=== PATIENT | male | born 1980 | race Caucasian/White ===

== ENCOUNTER 2018-03-19 21:03 | Inpatient (IN) ==
[2018-03-19] MEDS ORDERED: Haloperidol Inj 5 MG/ML Ampul IM ONE (21:20)
[2018-03-19] MEDS ORDERED: Tetanus/Diphtheria Toxoid Adult Vaccine Inj 0.5 ML Vial IM ONE (21:29)
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
[2018-03-19 22:39] LABS: Baso # (Auto) 0.1 th/mm3 (0.0-0.2); Baso % (Auto) 0.6 % (0.0-2.0); Eos # (Auto) 0.1 th/mm3 (0.0-0.4); Eos % (Auto) 1.2 % (0.0-4.0); Hematocrit 41.7 % (39.0-51.0); Hemoglobin 14.6 gm/dL (13.0-17.0); Lymph % (Auto) 18.7 % (9.0-44.0); Mean Corpuscular HGB Conc 35.1 % (32.0-36.0); Mean Corpuscular Hemoglobin 31.5 pg (27.0-34.0); Mean Corpuscular Volume 89.7 fL (80.0-100.0); Mean Platelet Volume 9.3 fL (7.0-11.0); Mono # (Auto) 0.9 th/mm3 (0.0-0.9); Mono % (Auto) 8.1 % (0.0-8.0); Neut # (Auto) 7.7 th/mm3 (1.8-7.7); Neut % (Auto) 71.4 % (16.0-70.0); Platelet Count 210 th/mm3 (150-450); Red Blood Count 4.65 mil/mm3 (4.50-5.90); Red Cell Distribution Width 12.5 % (11.6-17.2); White Blood Count 10.8 th/mm3 (4.0-11.0)
[2018-03-19 22:44] LABS: Alanine Aminotransferase 35 U/L (12-78); Anion Gap 9 meq/L (5-15); Aspartate Aminotransferase 32 U/L (15-37); Blood Urea Nitrogen 11 mg/dL (7-18); Calcium 8.4 mg/dL (8.5-10.1); Carbon Dioxide 23.6 meq/L (21.0-32.0); Chloride 111 meq/L (98-107); Glomerular Filtration Rate Greater Than 89 mL/min (>89); Glucose,Random 84 mg/dL (74-106); Potassium 3.2 meq/L (3.5-5.1); Sodium 144 meq/L (136-145)
[2018-03-19 22:54] LABS: Alkaline Phosphatase 61 U/L (45-117); Total Protein 7.1 g/dL (6.4-8.2)
[2018-03-19 23:00] LABS: Alcohol 160 mg/dL (0-5)
[2018-03-20] MEDS ORDERED: Ibuprofen 600 MG Tablet PO ONE ×2 (06:02→16:30)
[2018-03-20 07:40] LABS: Amphetamine Screen,Urine Neg (Neg); Barbiturate Screen,Urine Neg (Neg); Cannabinoid Screen,Urine Pos (Neg); Cocaine Screen,Urine Neg (Neg)
[2018-03-20 07:41] LABS: Opiate Screen,Urine Neg (Neg)
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
[2018-03-20] MEDS ORDERED: Bisacodyl 10 MG Supp RECTAL PRN (14:41)
[2018-03-20] MEDS ORDERED: Haloperidol Inj 5 MG/ML Ampul IV.PUSH PRN (14:41)
[2018-03-20] MEDS ORDERED: LORazepam 1 MG Tablet PO PRN (14:41)
[2018-03-20] MEDS ORDERED: Aluminum/Magnesium/Simethacone Susp 30 ML UDC PO PRN (14:41)
--- NOTE | 2018-03-20 14:52 | P.HPPSY ---
Provisional Diagnosis Admission Date: March 19, 2018 21:03 [place] I.: Alcohol induced mood disorder [place] II.: Antisocial traits Competence Certification of Person's Competence To Provide Express and Informed Consent I have personally examined Garth Rodarte, a person being served at [facility] on, March 20, 2018 1444. Express and informed consent means consent voluntarily given in writing, by a competent person, after sufficient explanation and disclosure of the subject matter involved to enable the person to make a knowing and willful decision without any element of force, fraud, deceit, duress, or other form of constraint or coercion. This person is 18 years of age or older, is not now known to be incompetent to consent to treatment with a guardian advocate, and does not have a health care surrogate or proxy currently making medical treatment decisions. I have found this person to be one of the following: [] Competent to provide express and informed consent, as defined above, for voluntary admission to this facility and is competent to provide express and informed consent for treatment. He/she has the consistent capacity to make well reasoned, willful, and knowing decisions concerning his or her medical or mental health treatment. The person fully and consistently understands the purpose of the admission for examination/placement and is fully capable of personally exercising all rights assured under [place] [] Incompetent to provide express and informed consent to voluntary admission, and this is incompetent to provide express and informed consent to treatment. The person must be transferred to involuntary status and a petition for a guardian advocate filed with the Circuit Court. [x] Refusing to provide express and informed consent to voluntary admission but is competent to provide express and informed consent for treatment. The person must be discharged or transferred to involuntary status. Form shall be completed within 24 hours of a person's arrival at the receiving facility and filed in the clinical record of each person: 1. Admitted on a voluntary basis 2. Permitted to provide express and informed consent to his/her own treatment 3. Allowed to transfer from involuntary to voluntary status 4. Prior to permitting a person to consent to his or her own treatment after having been previously found incompetent to consent to treatment. History of Present Illness Capacity: Has capacity History of Present Illness: The patient is a 37-year-old man, , unemployed at the moment, with a psychiatric history of alcohol and cannabis use disorder, no prepsychotic hospitalizations, no previous suicide attempts, no significant medical history, who presents to this facility under Johnson act for reportedly threatening to kill himself and his family with a loaded handgun. When police arrived he had a physical altercation with them. He currently has a contusion to his left eye with some swelling and a scrape/superficial laceration to his forehead. Patient is known to this facility and was seen in 2015 for a somewhat similar incident of drinking alcohol and making threats to take his life with a loaded gun. He states that he owns 1 firearm. I As per ETIOLOGY TEACHER Cesia Contreras: Reviewed electronic medical record, labs, discuss case with staff. Patient's toxicology screen is positive for cannabinoids and his serum alcohol level is 0.160. He was evaluated in her room J110 by Dr. Higgins and myself. Patient was found sleeping soundly and woke to verbal stimuli. His mood is irritable and he requests that we come back later to speak with him. Explained that we need to speak with him now and he eventually became slightly more cooperative. He does deny being suicidal or homicidal at this time and states that his actions were result to keep his family "on the other side of the door". When asked to elaborate he stated that he just wanted to be by himself. He reports that he "got on my son's asked for disrespect and the next thing I know I am being yelled at". He reports that he lives in [place] with his , 2 children, and one other person. 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 States that he completed college. Denies any medical problems. Denies any family mental health issues. Denies any mental diagnosis or inpatient admissions previously. Does report 1 previous suicide attempt by carbon monoxide asphyxiation. He states that he changed his mind during the attempt and rescued himself.The patient was initially irritated and rather condescending towards staff. He seems fairly entitled to complaining about the comfort of the bed, the lack of an additional pillow, and the blanket provided him. He seems to have some antisocial personality traits present. Patient is currently complaining of arm and shoulder pain as well as some rib pain. Staff have been advised to have medical clear him for the additional reported injuries and then to place him on the [facility] list for further evaluation and treatment. The patient does not have any previous psychiatric history, no suicide attempts , no previous psychiatric hospitalizations Patient reports that daily use of alcohol and cannabis He denies previous psychiatric family history No significant medical history The patient was born and raised in [place], he lives in [place] with his , has 2 kids, unemployed, his highest level of education is high school [employer] - History History Provided By: Patient, Law Enforcement - Tobacco History Smoking Status: Refused to answer - Alcohol History How Often Do You Have a Drink Containing Alcohol: Unable to Obtain - Substance Use History Substance History: Active Abuse - Substance Use Type Marijuana Status: Active Alcohol Status: Active - Immunization History Tetanus Immunization: Never Vaccinated Hx Influenza Vaccine This Season: No Medications and Allergies Active Medications: Active Medications Al Hydrox/Mg Hydrox/Simethicone (Mag-Al Plus Susp Liq) 30 ml PO Q6H PRN PRN Reason: DYSPEPSIA Al Hydroxide/Mg Hydroxide (Milk Of Magnesia Liq) 30 ml PO Q12H PRN PRN Reason: Mild Constipation Bisacodyl (Dulcolax Supp) 10 mg RECTAL DAILY PRN PRN Reason: SEVERE CONSITIPATION Flumazenil (Romazecon Inj) 0.2 mg IV.PUSH Q1M PRN PRN Reason: OVERSEDATION Haloperidol Lactate (Haldol Inj) 1 mg IV.PUSH Q15M PRN PRN Reason: for severe agitation Lactulose (Lactulose Liq) 30 ml PO DAILY PRN PRN Reason: SEVERE CONSITIPATION Lorazepam (Ativan) 1 mg PO Q4H PRN PRN Reason: for CIWA 8-10 Lorazepam (Ativan Inj) 2 mg IV.PUSH Q2H PRN PRN Reason: for CIWA 11-14 Lorazepam (Ativan Inj) 2 mg IV.PUSH Q1H PRN PRN Reason: for CIWA 15-20 Lorazepam (Ativan Inj) 2 mg IV.PUSH Q15M PRN PRN Reason: for CIWA > 20 Lorazepam (Ativan Inj) 1 mg IV.PUSH Q4H PRN PRN Reason: for CIWA 8-10 Lorazepam (Ativan) 2 mg PO Q2H PRN PRN Reason: for CIWA 11-14 Senna/Docusate Sodium (Carmita-Colace) 1 tab PO BID MAYRA Sennosides (Senokot) 17.2 mg PO Q12H PRN PRN Reason: Moderate Constipation Allergies Allergy/AdvReac Type Severity Reaction Status Date / Time No Known Allergies Allergy Uncoded 06/20/14 05:39 Home Medications Medication Instructions Recorded Confirmed Type No Known Home Medications 03/19/18 03/19/18 History Results - Labs CBC & Chem 7: 03/19/18 22:21 03/19/18 22:21 Labs: Laboratory Results - last 24 hr 03/19/18 03/19/18 03/20/18 22:21 22:21 06:14 WBC 10.8 RBC 4.65 Hgb 14.6 Hct 41.7 MCV 89.7 MCH 31.5 MCHC 35.1 RDW 12.5 Plt Count 210 MPV 9.3 Neut % (Auto) 71.4 H Lymph % (Auto) 18.7 Upson % (Auto) 8.1 H Eos % (Auto) 1.2 Baso % (Auto) 0.6 Neut # (Auto) 7.7 Lymph # (Auto) 2.0 Upson # (Auto) 0.9 Eos # (Auto) 0.1 Baso # (Auto) 0.1 WBC Differential . Differential Comment Auto diff final Sodium 144 Potassium 3.2 L Chloride 111 H Carbon Dioxide 23.6 Anion Gap 9 BUN 11 Creatinine 0.80 Estimated GFR Greater than 89 Random Glucose 84 Calcium 8.4 L Total Bilirubin 0.4 AST 32 ALT 35 Alkaline Phosphatase 61 Total Protein 7.1 Albumin 4.0 TSH 1.020 Urine Opiates Screen Neg Ur Barbiturates Screen Neg Ur Amphetamines Screen Neg U Benzodiazepines Scrn Neg Urine Cocaine Screen Neg U Cannabinoids Screen Pos H Serum Alcohol 160 H - Imaging Impressions Face CT 03/19/18 21:21 CONCLUSION: 1. Soft tissue swelling over the left orbit and facial bones. 2. No acute fracture or malalignment. Head CT 03/19/18 21:21 CONCLUSION: 1. No acute hemorrhage or mass effect. 2. Soft tissue swelling over the left orbit and facial bones. . Elbow X-Ray 03/20/18 09:57 CONCLUSION: No evidence of recent bony injury. Ribs X-Ray 03/20/18 09:57 CONCLUSION: Negative rib series. No evidence of pneumonthorax. Shoulder X-Ray 03/20/18 09:57 CONCLUSION: 1. Mild degenerative changes involving the right acromioclavicular glenohumeral joints. 2. No acute fracture or dislocation. Exam Vital signs: Vital Signs 03/20/18 10:05 03/20/18 10:12 Temperature 98.7 F 98.5 F Pulse Rate 61 61 Respiratory Rate 18 18 Blood Pressure 119/73 123/78 Pulse Oximetry 100 98 Intake & Output 03/19/18 03/20/18 03/20/18 18:59 06:59 18:59 Weight 99.79 kg Narrative: Somewhat tremulous, but no psychomotor agitation or retardation, no catatonia, no stiffness, bilateral checking - Constitutional moderate distress - Routine HEENT Exam Head: Present: normocephalic, Garcia's sign ENT: Present: mucous membranes moist Mental Status Examination Appearance: Disheveled Consciousness: Alert Orientation: x4 Motor Activity: Normal gait Speech: Unremarkable Language: Adequate Fund of Knowledge: Adequate Attention and Concentration: Adequate Memory: Unremarkable Mood: Irritable Affect: Irritable Thought Process & Associations: Intact Thought Content: Appropriate Hallucination Type: None Delusion Type: None Suicidal Ideation: No Suicidal Plan: No Suicidal Intention: No Homicidal Ideation: No Homicidal Plan: No Homicidal Intention: No Insight: Fair Judgment: Impulsive Assessment and Plan - Assessment (1) Adjustment disorder in remission Code(s): F43.20 - Adjustment disorder, unspecified Status: Acute (2) Adjustment disorder Code(s): F43.20 - Adjustment disorder, unspecified Status: Acute (3) Alcohol-induced mood disorder Code(s): F10.94 - Alcohol use, unspecified with alcohol-induced mood disorder Status: Acute (4) Suicidal ideation Code(s): R45.851 - Suicidal ideations Status: Acute - Plan Plan: On my psychiatric evaluation today the patient presents oppositional, resistant , initially refusing to cooperate. The patient reports that he does not even know what is the reason he is here. He admits that he had an argument with his , refused to provide details about this argument. He denies that he has expressed suicidal and homicidal ideation, he denies symptoms of depression. Given his opposition and the relevance and dangerous of Johnson act information, the patient will be admitted in psychiatry for longitudinal observation of mood and behavior and for safety. I have not recommending any psychotropic at the moment, just CIWA protocol to prevent alcohol withdrawal. Collateral information from and family member is crucial to complete psychiatric assessment. Justification for Continued Inpatient Stay: Patient will be admitted in 2700 unit. (2) Adjustment disorder Qualifiers: Adjustment disorder type: with depressed mood Qualified Code(s): F43.21 - Adjustment disorder with depressed mood
[2018-03-20 15:20] VITALS: TEMP 98.8
[2018-03-20] MEDS: Senna/Docusate Sodium 8.6/50 MG Tablet PO SCH (21:31)
[2018-03-21 07:35] LABS: Anion Gap 9 meq/L (5-15); Blood Urea Nitrogen 10 mg/dL (7-18); Calcium 9.1 mg/dL (8.5-10.1); Carbon Dioxide 25.3 meq/L (21.0-32.0); Chloride 109 meq/L (98-107); Glomerular Filtration Rate Greater Than 89 mL/min (>89); Glucose,Random 92 mg/dL (74-106); Potassium 3.6 meq/L (3.5-5.1); Sodium 143 meq/L (136-145)
[2018-03-21 07:36] LABS: Cholesterol 162 mg/dL (120-200); Triglycerides 94 mg/dL (42-150)
[2018-03-21 07:39] LABS: Chol/HDL Ratio 3.34 Ratio; HDL Cholesterol 48.5 mg/dL (40.0-60.0); LDL Cholesterol,Calculated 95 mg/dL (0-99)
[2018-03-21] MEDS: Senna/Docusate Sodium 8.6/50 MG Tablet PO SCH ×2 (09:47→20:49)
[2018-03-21] MEDS ORDERED: Aluminum/Magnesium/Simethacone Susp 30 ML UDC PO PRN (11:03)
--- NOTE | 2018-03-21 11:18 | P.PNPSY ---
Subjective Remarks: Patient initially admitted by Dr. Powell's H&P reviewed. Dr. Powell did continue the Johnson act. But did not initiate her first opinion. I have finished the initial admitting psychiatric template orders patient seen by me today with Counselor Abad and medical student Ivonne. Patient is alert somewhat irritable white male ecchymosis noted over his left eye and orbit. States he lives in a duplex next door to her his in-laws he lives with his and children. He states he got into an argument with his in-laws to get into some altercations leading to the black eye police called and he being [place] acted. Of interest patient was here in June 2014 at that time intoxicated with behavior issues and was sent toward [facility] where he states he was released after a day or 2. On this admission patient's blood alcohol came back at 160 with urine toxicology positive for marijuana. Patient somewhat minimizes his drinking he states he only drinks in the evening. He drinks hard liquor. He denies detox or rehab. Denies any legal issues related to drinking. Denies blacking out or passing out. He acknowledges occasional marijuana use but minimizes that also. He denies any other psychiatric contact hospitalization psychotropic medications. He denies any suicidal homicidal ideation intent or plan. He is able contract to do no harm. Patient denies any physical or sexual abuse as a child is vague about any past mental health history in the family. Though he does acknowledge addictions in the family. He denies any other significant MedSurg history. Counselor did talk to patient' s . She acknowledges that there are no firearms in the house that she is now removing them. She states that her is usually a quiet man except when he drinks. She requested that we monitor patient overnight to observe his behavior and to allow her time to get the house straightened out. Otherwise she feels safe with him coming home. We did discuss this with the patient. He is willing to stay voluntarily over above the 24 hours for further observation and assessment and if he does well to be discharged tomorrow to follow-up with mental health and substance abuse issues in the community Review of Systems All other systems reviewed negative except as stated in HPI Mental Status Examination Appearance: Disheveled Consciousness: Alert Orientation: x4 Motor Activity: Normal gait Speech: Unremarkable Language: Adequate Fund of Knowledge: Adequate Attention and Concentration: Adequate Memory: Unremarkable Mood: Other (Euthymic to somewhat restricted with small amount of irritability) Affect: Other (Decreased range and intensity) Thought Process & Associations: Intact Thought Content: Appropriate Hallucination Type: None Delusion Type: None Suicidal Ideation: No Suicidal Plan: No Suicidal Intention: No Homicidal Ideation: No Homicidal Plan: No Homicidal Intention: No Insight: Fair Judgment: Impulsive Assessment and Plan - Assessment (1) Adjustment disorder in remission Code(s): F43.20 - Adjustment disorder, unspecified Status: Acute (2) Adjustment disorder Code(s): F43.20 - Adjustment disorder, unspecified Status: Acute (3) Alcohol-induced mood disorder Code(s): F10.94 - Alcohol use, unspecified with alcohol-induced mood disorder Status: Acute (4) Suicidal ideation Code(s): R45.851 - Suicidal ideations Status: Acute - Plan Plan: At this time patient meets criteria for further observation and assessment though I feel his capacity to sign voluntary thus I will lift the Johnson act allow her to sign voluntary. We will discuss situation with patient's will observe patient another 24 hours first step mobilization of his mood and behavior. Consideration of discharge tomorrow home with his . B no Rx by me today we will continue him as a precaution on the ciwa protocol Justification for Continued Inpatient Stay: At this time patient may decompensate a place to a lower level of care Discharge Planning: Possible to discharge home tomorrow to family Request Healthcare Surrogate/Guardian Advocate?: No (2) Adjustment disorder Qualifiers: Adjustment disorder type: with depressed mood Qualified Code(s): F43.21 - Adjustment disorder with depressed mood
[2018-03-21] MEDS: Acetaminophen 325 MG Tablet PO PRN ×3 (13:04→21:31)
[2018-03-21 16:45] LABS: Hemoglobin A1c 5.1 % (4.3-6.0)
[2018-03-22] MEDS: Acetaminophen 325 MG Tablet PO PRN ×2 (03:35→08:30)
[2018-03-22 05:59] VITALS: BP 125/83; PULSE 67; RESP 16; O2SAT 98
[2018-03-22] MEDS: Senna/Docusate Sodium 8.6/50 MG Tablet PO SCH (08:35)
--- NOTE | 2018-03-22 09:11 | P.TTN ---
- Patient Problems Problems: 1. Discharge planning 2. Medication compliance 3. Knowledge deficit 4. Lack of coping skills - Progress Toward Goals Provider Present: Dr. Chevy Bruno (Patient primarily suffers from alcohol dependence, patient meets criteria for discharge.) Psychiatric Counselors Present: Abad Kelly Jr., [facility] (Counselor arranging discharge plan, patient will return home to his residence, will provide transport, patient will follow-up at [facility]) Group Spec/RT/OT/ANDERSON Present: LEA Vinson (Patient has been seclusive to his room and does not attend groups.) - Documentation Teaching Recipient: Patient
--- NOTE | 2018-03-22 10:05 | P.DSPSY ---
Psychiatry Discharge Summary Inpatient Psychiatric care?: Yes Advance Directives: Unknown Reason for Unknown:: Other Mental Health Advance Directive: No Health Care Proxy: No - Admission Admission Date: March 20, 2018 14:50 - Admission Diagnosis (1) Alcohol-induced mood disorder Code(s): F10.94 - Alcohol use, unspecified with alcohol-induced mood disorder (2) Adjustment disorder Code(s): F43.20 - Adjustment disorder, unspecified Brief History: The patient is a 37-year-old man, , unemployed at the moment, with a psychiatric history of alcohol and cannabis use disorder, no prepsychotic hospitalizations, no previous suicide attempts, no significant medical history, who presents to this facility under [place] act for reportedly threatening to kill himself and his family with a loaded handgun. When police arrived he had a physical altercation with them. He currently has a contusion to his left eye with some swelling and a scrape/superficial laceration to his forehead. Patient is known to this facility and was seen in 2015 for a somewhat similar incident of drinking alcohol and making threats to take his life with a loaded gun. He states that he owns 1 firearm. I As per HRIS ADMINISTRATOR Cesia Contreras: Reviewed electronic medical record, labs, discuss case with staff. Patient's toxicology screen is positive for cannabinoids and his serum alcohol level is 0.160. He was evaluated in her room J110 by Dr. Higgins and myself. Patient was found sleeping soundly and woke to verbal stimuli. His mood is irritable and he requests that we come back later to speak with him. Explained that we need to speak with him now and he eventually became slightly more cooperative. He does deny being suicidal or homicidal at this time and states that his actions were result to keep his family "on the other side of the door". When asked to elaborate he stated that he just wanted to be by himself. He reports that he "got on my son's asked for disrespect and the next thing I know I am being yelled at". He reports that he lives in [place] with his , 2 children, and one other person. 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 States that he completed college. Denies any medical problems. Denies any family mental health issues. Denies any mental diagnosis or inpatient admissions previously. Does report 1 previous suicide attempt by carbon monoxide asphyxiation. He states that he changed his mind during the attempt and rescued himself.The patient was initially irritated and rather condescending towards staff. He seems fairly entitled to complaining about the comfort of the bed, the lack of an additional pillow, and the blanket provided him. He seems to have some antisocial personality traits present. Patient is currently complaining of arm and shoulder pain as well as some rib pain. Staff have been advised to have medical clear him for the additional reported injuries and then to place him on the [facility] list for further evaluation and treatment. The patient does not have any previous psychiatric history, no suicide attempts , no previous psychiatric hospitalizations Patient reports that daily use of alcohol and cannabis He denies previous psychiatric family history No significant medical history The patient was born and raised in [place], he lives in [place] with his , has 2 kids, unemployed, his highest level of education is high school Tobacco Use In Past 30 Days: Yes How Often Do You Have a Drink Containing Alcohol: 4 or more times a week Hospital Course: Patient's hospital course was uneventful further observation at the inpatient psychiatric unit she will the patient having no behavioral issues he was calm and cooperative with the staff he did sleep well but is no significant signs of any withdrawal symptoms from the alcohol. Patient seen this morning he continues alert oriented calm cooperative denying suicidality homicidality voices or visions. States she does have a resolve to preserve his marriage and him being a parent, and also continuing with his employment and maintaining absolute sobriety. Thus patient to be discharged today to his with no Rx by me referral to his PCP, referral to AA, referral to [facility] voluntary outpatient substance abuse assessment - Discharge Discharge Date: 03/22/18 - Discharge Diagnosis (1) Alcohol-induced mood disorder Diagnosis: Secondary Code(s): F10.94 - Alcohol use, unspecified with alcohol-induced mood disorder Status: Acute (2) Adjustment disorder Diagnosis: Principal Code(s): F43.20 - Adjustment disorder, unspecified Status: Acute Discharge Disposition: Home - Discharge Instructions Discharge Diet: Regular Diet Activities You Can Perform: Regular- No Restrictions - Discharge Time > 30 minutes Mental Status Examination Appearance: Disheveled Consciousness: Alert Orientation: x4 Motor Activity: Normal gait Speech: Unremarkable Language: Adequate Fund of Knowledge: Adequate Attention and Concentration: Adequate Memory: Unremarkable Mood: Other (Euthymic to somewhat restricted with small amount of irritability) Affect: Other (Decreased range and intensity) Thought Process & Associations: Intact Thought Content: Appropriate Hallucination Type: None Delusion Type: None Suicidal Ideation: No Suicidal Plan: No Suicidal Intention: No Homicidal Ideation: No Homicidal Plan: No Homicidal Intention: No Insight: Fair Judgment: Impulsive Discharge/Advance Care Plan - Results Vital Signs: Last Vital Signs Temp 98.8 F 03/21/18 16:00 Pulse 67 03/22/18 05:57 Resp 16 03/22/18 05:57 BP 125/83 03/22/18 05:57 Pulse Ox 98 03/22/18 05:57 Lab Results: Abnormal Lab Results 03/21/18 05:44 Hemoglobin A1c 5.1 Laboratory Results Hemoglobin A1c 5.1 % (4.3-6.0) 03/21/18 05:44 Triglycerides 94 mg/dL (42-150) 03/21/18 05:44 Cholesterol 162 mg/dL (120-200) 03/21/18 05:44 LDL Cholesterol, Calc 95 mg/dL (0-99) 03/21/18 05:44 HDL Cholesterol 48.5 mg/dL (40.0-60.0) 03/21/18 05:44 TSH 1.020 uIU/mL (0.358-3.740) 03/19/18 22:21 Summary of Procedures: None done Imaging: ITS Impressions Face CT 03/19/18 21:21 CONCLUSION: 1. Soft tissue swelling over the left orbit and facial bones. 2. No acute fracture or malalignment. Head CT 03/19/18 21:21 CONCLUSION: 1. No acute hemorrhage or mass effect. 2. Soft tissue swelling over the left orbit and facial bones. . Elbow X-Ray 03/20/18 09:57 CONCLUSION: No evidence of recent bony injury. Ribs X-Ray 03/20/18 09:57 CONCLUSION: Negative rib series. No evidence of pneumonthorax. Shoulder X-Ray 03/20/18 09:57 CONCLUSION: 1. Mild degenerative changes involving the right acromioclavicular glenohumeral joints. 2. No acute fracture or dislocation. Pending Results: None - Medications Number of antipsychotic medications at discharge: 0 - Discharge Care Plan Goals to Promote Your Health: * To prevent worsening of your condition and complications * To maintain your health at the optimal level Directions to Meet Your Goals: Take your medications as prescribed Follow your dietary instruction Follow activity as directed Keep your appointments as scheduled Take your immunizations and boosters as scheduled If your symptoms worsen call your PCP, if no PCP go to Urgent Care Center or Emergency Room For 10/01 questions related to your inpatient stay or results of tests pending at discharge, please contact Dr. Kendall Bruno MD at Smoking is Dangerous to Your Health. Avoid second hand smoking (2) Adjustment disorder Qualifiers: Adjustment disorder type: with depressed mood Qualified Code(s): F43.21 - Adjustment disorder with depressed mood (2) Adjustment disorder Qualifiers: Adjustment disorder type: with depressed mood Qualified Code(s): F43.21 - Adjustment disorder with depressed mood
== END 2018-03-22 11:45 | disposition home or self-care (01) ==
LOC: NEDAMB 21:03 → NEDA 03-20 14:50 → H270 03-20 15:23
PROVIDERS: ADMIT Psychiatry & Neurology Psychiatry; ATTEND Psychiatry & Neurology Psychiatry